=== PATIENT | female | born 1985 | race Caucasian/White ===

== ENCOUNTER 2025-09-02 06:21 | Day surgery (SDC) | payer OTHER, SELFPAY | END 2025-09-02 13:02 | disposition home or self-care (01) | LOC: GI 06:21 | PROVIDERS: ATTENDING PHYSICIAN Internal Medicine Gastroenterology | DX: Z12.11 Encounter for screening for malignant neoplasm of colon (principal); Z86.0100 Personal history of colon polyps, unspecified; Z83.719 Family history of colon polyps, unspecified | CPT/HCPCS: G0105 ==